=== PATIENT | male | born 1995 | race Two or more races ===

== ENCOUNTER 2017-04-21 12:42 | Emergency (ER) | payer OTHER ==
[2017-04-21 13:19] VITALS: BP 135/79
--- NOTE | 2017-04-21 14:04 | UC ---
Throat Pain/Nasal Kehinde HPI - HPI Summary HPI Summary: Sinus pain and pressure for over 7 days - History of Current Complaint Chief Complaint: UCGeneralIllness Stated Complaint: HEADACHES, DIZZINESS Time Seen by Provider: 04/21/17 13:45 Hx Obtained From: Patient Onset/Duration: Gradual Onset, Lasting Days, Still Present Severity: Moderate Cough: None Associated Signs & Symptoms: Positive: Sinus Discomfort, Nasal Discharge - Allergies/Home Medications Allergies/Adverse Reactions: Allergies Allergy/AdvReac Type Severity Reaction Status Date / Time cats Allergy Intermediate Eyes Uncoded 04/21/17 13:19 Itchy/Swollen/Red/Watery PMH/Surg Hx/FS Hx/Imm Hx Previously Healthy: Yes - Surgical History Surgical History: None - Family History Known Family History: Positive: None - Social History Occupation: Employed Full-time Lives: With Family Alcohol Use: Occasionally Substance Use Type: None Smoking Status (MU): Current Some Day Smoker Review of Systems Constitutional: Negative Skin: Negative Eyes: Negative ENT: Sore Throat, Nasal Discharge, Sinus Congestion, Sinus Pain/Tenderness Respiratory: Negative Cardiovascular: Negative Gastrointestinal: Negative Genitourinary: Negative Motor: Negative Neurovascular: Negative Musculoskeletal: Negative Neurological: Headache Psychological: Negative Is Patient Immunocompromised?: No All Other Systems Reviewed And Are Negative: Yes Physical Exam Triage Information Reviewed: Yes Appearance: Well-Nourished, Ill-Appearing, Pain Distress Vital Signs: Initial Vital Signs Temp 98.7 F 04/21/17 13:14 Pulse 76 04/21/17 13:14 Resp 18 04/21/17 13:14 BP 135/79 04/21/17 13:14 Pulse Ox 100 04/21/17 13:14 Vital Signs Reviewed: Yes Eye Exam: Normal Eyes: Positive: Conjunctiva Clear ENT Exam: Normal ENT: Positive: Normal ENT inspection, Hearing grossly normal, Pharynx normal, Nasal congestion, TMs normal, Sinus tenderness, Uvula midline. Negative: Tonsillar swelling, Tonsillar exudate, Trismus, Muffled voice, Hoarse voice, Dental tenderness Dental Exam: Normal Neck exam: Normal Neck: Positive: Supple, Nontender, No Lymphadenopathy Respiratory Exam: Normal Respiratory: Positive: Chest non-tender, Lungs clear, Normal breath sounds, No respiratory distress, No accessory muscle use Cardiovascular Exam: Normal Cardiovascular: Positive: RRR, No Murmur, Pulses Normal, Brisk Capillary Refill Musculoskeletal Exam: Normal Musculoskeletal: Positive: Strength Intact, ROM Intact Neurological Exam: Normal Neurological: Positive: Alert, Muscle Tone Normal Psychological Exam: Normal Skin Exam: Normal Throat Pain/Nasal Course/Dx - Course Assessment/Plan: Flonase, Augmentin, tylenol, ibuprofen, Mucinex D follow with pcp - Differential Dx/Diagnosis Provider Diagnoses: Acute Sinusitis Discharge - Discharge Plan Condition: Stable Disposition: HOME Prescriptions: Amoxicillin/Clavulanate TAB* [Augmentin TAB 875*] 875 mg PO BID #20 tab Fluticasone NASAL SPRAY 50MCG* [Flonase NASAL SPRAY 50MCG*] 2 spray BOTH NARES DAILY #1 btl Patient Education Materials: Decongestant/Expectorant (By mouth), Sinusitis (ED ), How to Use Nasal [place] (ED) Referrals: [facility] – [place] PHYS[facility]IAN REFERRAL [Outside] - If Needed
== END 2017-04-21 14:11 | disposition home or self-care (01) ==
LOC: UCEAST 12:42
DX: J01.90 Acute sinusitis, unspecified (principal); Z72.0 Tobacco use
CPT/HCPCS: 99212; G0463

== ENCOUNTER 2017-05-07 16:56 | Emergency (ER) | payer OTHER ==
[2017-05-07 17:20] VITALS: BP 140/76
--- NOTE | 2017-05-07 18:04 | UC ---
Respiratory Complaint HPI - HPI Summary HPI Summary: 22 y/o female presents to the urgent care c/o chest congested, productive cough with green sputum for the past 2 weeks. Pt reports he was seen here at the clinic on 04/21/2017 and Dx Sinusitis Rx Augmentin and flonase. Symptoms improved for few days, but have worsen for the past 2 days. He had mild fever last night. Pt denies SOB, chest pain, abdominal pain, N/V/D - History of Current Complaint Chief Complaint: UCRespiratory Stated Complaint: URI Time Seen by Provider: 05/07/17 17:51 Hx Obtained From: Patient Onset/Duration: Gradual Onset, Lasting Weeks - 2 weeks, Still Present, Worse Since - 2 days Timing: Intermittent Episodes Severity Initially: Mild Severity Currently: Moderate Pain Intensity: 0 Pain Scale Used: 0-10 Numeric Character: Cough: Productive, Sputum Description: - green Aggravating Factors: Recumbent Position Alleviating Factors: OTC Meds Associated Signs And Symptoms: Positive: Fever, URI, Nasal Congestion - Risk Factors Pulmonary Embolism Risk Factors: Negative Cardiac Risk Factors: Negative Pseudomonas Risk Factors: Negative Tuberculosis Risk Factors: Negative - Allergies/Home Medications Allergies/Adverse Reactions: Allergies Allergy/AdvReac Type Severity Reaction Status Date / Time cats Allergy Intermediate Eyes Uncoded 05/07/17 17:11 Itchy/Swollen/Red/Watery PMH/Surg Hx/FS Hx/Imm Hx Previously Healthy: Yes - Pt denies PMHX - Surgical History Surgical History: None - Family History Known Family History: Positive: None - Pt denies FMHX - Social History Occupation: Student Lives: With Family Alcohol Use: Occasionally Substance Use Type: None Smoking Status (MU): Current Some Day Smoker Review of Systems Constitutional: Fever - subjective at home Skin: Negative Eyes: Negative ENT: Nasal Discharge Respiratory: Cough - productive cough with green sputum Cardiovascular: Negative Gastrointestinal: Negative Genitourinary: Negative Motor: Negative Neurovascular: Negative Musculoskeletal: Negative Neurological: Headache Psychological: Negative Is Patient Immunocompromised?: No All Other Systems Reviewed And Are Negative: Yes Physical Exam Triage Information Reviewed: Yes Vital Signs: Initial Vital Signs Temp 98 F 05/07/17 17:17 Pulse 103 05/07/17 17:17 Resp 18 05/07/17 17:17 BP 140/76 05/07/17 17:17 Pulse Ox 100 05/07/17 17:17 - Additional Comments Vital Signs Reviewed: Yes General: well developed, well nourished male sitting in the examining table w/o any apparent distress Eyes: Positive: Conjunctiva Clear - PERRLA, EOMI, fundi grossly normal ENT: Positive: Normal ENT inspection, Hearing grossly normal, Pharynx normal, Nasal congestion - edematous and erythematous nasal mucosa, Nasal drainage - yellowish drainage, TMs normal. Negative: Tonsillar swelling, Tonsillar exudate Neck: Positive: Supple, Nontender, No Lymphadenopathy Respiratory: no orthopnea or dyspnea. Able to speak in full sentences, no retractions or accessory muscle use, no tripod position, stridor, or head bobbing. Breath sounds present, Scattered rhonchi in the posteior upper lung oneill, no wheezing,or rales. Cardiovascular: Positive: RRR, No Murmur, Pulses Normal, Brisk Capillary Refill Abdomen Description: Positive: Nontender, No Organomegaly, Soft. Negative: CVA Tenderness (R), CVA Tenderness (L) Bowel Sounds: Positive: Present Musculoskeletal Exam: Normal Musculoskeletal: Positive: Strength Intact, ROM Intact, No Edema Neurological Exam: Normal Psychological Exam: Normal Skin Exam: Normal UC Diagnostic Evaluation - Laboratory O2 Sat by Pulse Oximetry: 100 Respiratory Course/Dx - Course Course Of Treatment: 22 y/o female presents to the urgent care c/o chest congested, productive cough with green sputum for the past 2 weeks. Pt reports he was seen here at the clinic on 04/21/2017 and Dx Sinusitis Rx Augmentin and flonase. Symptoms improved for few days, but have worsen for the past 2 days. He had mild fever last night. YAP today is 8/10. Pt denies SOB, chest pain, abdominal pain, N/V/D. Hx obtained. Pt with Acute bronchitis on examination. Pt Rx Z-edward PO and Ibuprofen PO to alleviate YAP. Pt advised to increase fluid intake and eat well.Pt's BP is elevated today advised to decrease salt in diet, monitor BP and f/u with PCP for further management. if not improvement or worsening of symptoms to return to the urgent care or f/u with PCP for further management. pt understood and agreed with plan of care. - Differential Dx/Diagnosis Differential Diagnosis/HQI/PQRI: Asthma, Bronchitis, Influenza, Laryngitis, Lower Resp Infection, Sinusitis Provider Diagnoses: 1- Acute bronchitis. 2- Elevated BP w/o Hx of HTN Discharge - Discharge Plan Condition: Stable Disposition: HOME Prescriptions: Azithromyxin EDWARD (NF) [Z-Edward (Zithromax) 250 mg tabs #6] 2 tab PO .TODAY, THEN 1 DAILY #6 tab Ibuprofen TAB* [Motrin TAB* 800 MG] 800 mg PO Q6H #20 tab Patient Education Materials: Acute Bronchitis (ED), Low Sodium Diet (ED) Referrals: [facility] – [place] PHYSICIAN REFERRAL [Outside] - If Needed Additional Instructions: 1-Please take full course of antibiotic to avoid resistance. 2-Take Ibuprofen PO q6-8hrs prn after measl to allevite pain and fever. Increase fluid intake, rest and eat well. 3- If symptoms do not improve or worsen or your develop SOB with fever and severe wheezing please go immediately to the ER further evaluation and treatment. 4- F/u with your PCP in 2-3 days for further management 5- Your BP is elevated today. please decrease salt in your diet, monitor BP and if it continues to be elevated please f/u with your PCP for further management
== END 2017-05-07 18:40 | disposition home or self-care (01) ==
LOC: UCEAST 16:56
DX: J20.9 Acute bronchitis, unspecified (principal); R03.0 Elevated blood-pressure reading, without diagnosis of hypertension; Z72.0 Tobacco use
CPT/HCPCS: 87651; 99212; G0463

== ENCOUNTER 2017-05-29 09:21 | Emergency (ER) | payer OTHER ==
[2017-05-29 09:35] VITALS: BP 153/77
--- NOTE | 2017-05-29 10:22 | RAD ---
Indication: Progressive pain of the left shoulder 4 views of left shoulder demonstrates no definite fracture or dislocation. There is borderline widening of the AC joint. Clinical correlation suggested. IMPRESSION: No fracture is noted. Borderline widening of AC joint.
--- NOTE | 2017-05-29 11:52 | UC ---
Eric Grissom Angela, scribed for Susan Gomez MD on 05/29/17 at 0938 . Upper Extremity HPI - HPI Summary HPI Summary: This pt is a 22 y/o male presenting to [facility] c/o gradual onset of left shoulder pain since 05/20/17. Denies any recent trauma or injury. Unkown hx earlier trauma. Pt is right hand dominant. His pain is constant and is aggravated with movement. Pt describes his pain on left shoulder radiating to left collar bone. He states his neck is sore from shoulder pain. 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 Pt has had physical therapy in the past for his back. Pt does not have a PCP. Denies kidney problems or stomach ulcers. - History of Current Complaint Stated Complaint: LEFT SHOULDER PAIN Time Seen by Provider: 05/29/17 09:26 Hx Obtained From: Patient Onset/Duration: Gradual Onset, Lasting Days, Still Present Severity Currently: Moderate Pain Intensity: 6 Pain Scale Used: 0-10 Numeric Location Of Pain: Is Discrete @ - left shoulder Aggravating Factor(s): Movement Alleviating Factor(s): Rest Associated Signs And Symptoms: Positive: Negative Related History: Dominant Hand Right - Allergies/Home Medications Allergies/Adverse Reactions: Allergies Allergy/AdvReac Type Severity Reaction Status Date / Time cats Allergy Intermediate Eyes Uncoded 05/29/17 09:35 Itchy/Swollen/Red/Watery Home Medications: Home Medications Acetaminophen [Tylenol] 2 tab PO Q4HR PRN 05/29/17 [History Confirmed 05/29/17] PMH/Surg Hx/FS Hx/Imm Hx Previously Healthy: Yes Other Endocrine History: DENIES: diabetes Other Cardiovascular History: DENIES: HTN - Surgical History Surgical History: None Surgery Procedure, Year, and Place: denies - Family History Family History: Pt denies any FHx. - Social History Alcohol Use: Occasionally Substance Use Type: None Smoking Status (MU): Never Smoked Tobacco - Immunization History Most Recent Influenza Vaccination: 04/2017 Review of Systems Constitutional: Negative Skin: Negative Eyes: Negative ENT: Negative Respiratory: Negative Cardiovascular: Negative Gastrointestinal: Negative Genitourinary: Negative Motor: Negative Neurovascular: Other - no p/d/w Musculoskeletal: Other: - see hpi Neurological: Negative Psychological: Negative Is Patient Immunocompromised?: No All Other Systems Reviewed And Are Negative: Yes Physical Exam Triage Information Reviewed: Yes Appearance: Well-Nourished Vital Signs: Initial Vital Signs Temp 99.1 F 05/29/17 09:31 Pulse 94 05/29/17 09:31 Resp 18 05/29/17 09:31 BP 153/77 05/29/17 09:31 Pulse Ox 97 05/29/17 09:31 Vital Signs Reviewed: Yes Eye Exam: Normal ENT Exam: Normal Neck exam: Normal - mild musc spasm post upper shoulder / neck. No point jaziel tenderness. Neck: Positive: Supple, Nontender Respiratory: Positive: Chest non-tender, Lungs clear, Normal breath sounds, No respiratory distress, No accessory muscle use Cardiovascular Exam: Normal Cardiovascular: Positive: RRR, No Murmur, Pulses Normal, Brisk Capillary Refill Abdominal Exam: Normal Abdomen Description: Positive: Nontender, No Organomegaly, Soft Bowel Sounds: Positive: Present Musculoskeletal Exam: Other - Tender L ac region, no skin changes noted. Tender under axilla, no point tenderness. Able to move in all directions, but painful full adbuct and rotate. Distal R/U pulses good. Elbow and hand nontender from +LT sensation. Neurological Exam: Normal - nonfocal, grossly intact + ax nerve sensation present bilat. Psychological Exam: Normal - conversing easily and appropriately Skin Exam: Normal - no visible or reported rash Diagnostics - Radiology Left shoulder XR Xray Interpretation: No Acute Changes - IMPRESSION: no fracture is noted. Borderline widening of AC joint. Dr. Gomez has reviewed this radiology report. Radiology Interpretation Completed By: Radiologist Re-Evaluation - Re-Evaluation First Eval Re-Evaluation Time: 10:47 Comment: I reviewed the XR results with the pt. Upper Extremity Course/Dx - Course Course Of Treatment: Reviewed xray and xray report. D/w pt. Reviewed tx plan / coa. + work note. Referral sports medicine and orthopedics. May benefit from PT, but will benefit from specialist evaluation prior. Quetions as posed answered to the best of my ability. - Differential Dx/Diagnosis Provider Diagnoses: L shoulder pain with wide AC joint. Consider concomitant rotator cuff component (doubt primary) Discharge - Discharge Plan Condition: Stable Disposition: HOME Prescriptions: Meloxicam [Mobic] 15 mg PO DAILY WITH MEAL PRN #30 tab PRN Reason: Pain Patient Education Materials: Acromioclavicular Separation (ED), Shoulder Pain ( ED) Forms: *Work Release Referrals: Jose Alejandro Sunshine [Medical Doctor] - Anival Bhagat MD [Medical Doctor] - No Primary Care Phys,NOPCP [Primary Care Provider] - Additional Instructions: Your blood pressure was elevated during today's visit, 153/77. Please follow up with your primary care provider in 1-2 weeks. Please follow up with an orthopedic doctor in 1-2 weeks. Seek medical attention for worse or new problems in the meantime. Follow up orthopedist 1-2 weeks. Sling for comfort / rest. Follow up Sports medicine 1-2 weeks. The documentation as recorded by the Eric gaitan Angela accurately reflects the service I personally performed and the decisions made by me, Susan Gomez MD.
== END 2017-05-29 11:23 | disposition home or self-care (01) ==
LOC: UCEAST 09:21
DX: M25.512 Pain in left shoulder (principal); M25.812 Other specified joint disorders, left shoulder; R03.0 Elevated blood-pressure reading, without diagnosis of hypertension; Z91.09 Other allergy status, other than to drugs and biological substances
CPT/HCPCS: 99212; G0463

== ENCOUNTER 2017-12-19 11:18 | Emergency (ER) | payer OTHER ==
--- NOTE | 2017-12-19 11:33 | UC ---
Throat Pain/Nasal Kehinde HPI - HPI Summary HPI Summary: 22 yo male presents with a sore throat for the last 2 days. He tells me that about 2-3 days ago he began to have a mild headache and felt intermittent dizziness. 2 days ago the sore throat started and felt feverish. He is able to eat and drink, but admits to eating/drinking less due to pain. Has been taking tylenol with mild relief. Denies sick contacts, sinus symptoms, SOB, chest pain , rash, n/v. - History of Current Complaint Stated Complaint: SORE THROAT Time Seen by Provider: 12/19/17 11:32 Hx Obtained From: Patient Onset/Duration: Sudden Onset Severity: Severe Pain Intensity: 10 Pain Scale Used: 0-10 Numeric - Allergies/Home Medications Allergies/Adverse Reactions: Allergies Allergy/AdvReac Type Severity Reaction Status Date / Time cats Allergy Intermediate Eyes Uncoded 12/19/17 11:37 Itchy/Swollen/Red/Watery PMH/Surg Hx/FS Hx/Imm Hx - Additional Past Medical History Additional PMH: None Previously Healthy: Yes - Surgical History Surgical History: None Surgery Procedure, Year, and Place: denies - Family History Known Family History: Positive: None - Pt denies FMHX Family History: Pt denies any FHx. - Social History Occupation: Student Lives: With Family Alcohol Use: Occasionally Substance Use Type: None Smoking Status (MU): Never Smoked Tobacco Amount Used/How Often: 1 tin tobacco q 2 weeks Household Exposure Type: Cigarettes - Immunization History Most Recent Influenza Vaccination: 04/2017 Review of Systems Constitutional: Fever Skin: Negative Eyes: Negative ENT: Sore Throat Respiratory: Negative Cardiovascular: Negative Gastrointestinal: Negative Neurovascular: Negative Musculoskeletal: Negative Neurological: Headache Psychological: Negative All Other Systems Reviewed And Are Negative: Yes Physical Exam - Summary Physical Exam Summary: GENERAL: Mildly ill appearing. SKIN: No rashes, sores, lesions, or open wounds. HEENT: Head: AT/NC Eyes: Conjunctiva clear without inflammation or discharge. Ears: Hearing grossly normal. TMs intact, no bulging, erythema, or edema. Nose: Nasal mucosa pink and moist. NTTP maxillary and frontal sinus. Throat: Posterior oropharynx moderate erythema and 3+ tonsillar enlargement. No exudates. Uvula midline. No hoarse voice or muffled voice. NECK: Supple. Mildly TTP b/l tonsillar LAD CHEST: CTAB. No r/r/w. No accessory muscle use. Breathing comfortably and in no distress. CV: RRR. Without m/r/g. Pulses intact. Brisk cap refill. NEURO: Alert. CN II-XII grossly intact. PSYCH: Age appropriate behavior. Triage Information Reviewed: Yes Vital Signs: Vital Signs: Temp Pulse Resp BP Pulse Ox 101.6 F 102 18 135/78 97 12/19/17 11:39 12/19/17 11:39 12/19/17 11:39 12/19/17 11:39 12/19/17 11:39 Laboratory Tests 12/19/17 11:43 Group A Strep Rapid Negative Vital Signs Reviewed: Yes Throat Pain/Nasal Course/Dx - Course Course Of Treatment: POC strep negative. His history and clinical exam are highly suspicious for strep infection - will treat with Amoxicillin and have him f/u if symptoms persist or worsen. - Differential Dx/Diagnosis Provider Diagnoses: Strep pharyngitis Discharge - Sign-Out/Discharge Documenting (check all that apply): Patient Departure - Discharge Plan Condition: Stable Disposition: HOME Prescriptions: Amoxicillin PO (*) [Amoxicillin 500 MG CAP*] 500 mg PO Q12H #20 cap Patient Education Materials: Strep Throat (ED) Forms: *Work Release Referrals: No Primary Care Phys,NOPCP [Primary Care Provider] - Additional Instructions: If you develop an increasing fever, shortness of breath, chest pain, new or worsening symptoms - please call your PCP or go to the ED. - Billing Disposition and Condition Condition: STABLE Disposition: Home
[2017-12-19 11:44] VITALS: BP 135/78
== END 2017-12-19 12:08 | disposition home or self-care (01) ==
LOC: UCEAST 11:18
DX: J02.0 Streptococcal pharyngitis (principal); Z91.09 Other allergy status, other than to drugs and biological substances
CPT/HCPCS: 87070; 87651; 99212; G0463